=== PATIENT | male | born 1955 | race Caucasian/White ===

== ENCOUNTER 2022-03-20 15:32 | Inpatient (IN) | payer OTHER ==
[~2022-03-20] VITALS: Ht 180.3 cm; Wt 127.0 kg
== END 2022-03-23 22:48 | disposition home or self-care (01) | DRG 813 ==
LOC: ER 15:32 → SEC-K 21:03 → SURG 21:03
PROVIDERS: ADMIT Internal Medicine; ATTEND Internal Medicine
PROC: 30233R1 Transfusion of Nonautologous Platelets into Peripheral Vein, Percutaneous Approach (ICD-10-PCS; principal; 2022-03-21)
DX: D69.3 Immune thrombocytopenic purpura (principal); K06.8 Other specified disorders of gingiva and edentulous alveolar ridge